=== PATIENT | female | born 1930 | race Caucasian/White ===

== ENCOUNTER 2016-09-10 14:40 | Emergency (ER) | payer MEDICARE, OTHER ==
[2016-09-10 15:28] VITALS: BP 161/88
--- NOTE | 2016-09-10 15:49 | EDM.PDOC ---
ED HPI GENERAL MEDICAL PROBLEM - General Chief Complaint: Lower Extremity Injury/Pain Stated Complaint: TRAUMA VIA [place], LT HIP PAIN Time Seen by Provider: 09/10/16 15:20 Source of Information: Reports: Patient, EMS History Limitations: Reports: No Limitations - History of Present Illness INITIAL COMMENTS - FREE TEXT/NARRATIVE: Pt to ER via EMS after falling in her yard while walking her dog today around 1: 45pm. Unsure what happened but landed on her left hip in the grass. Denies loss of consciousness or hitting her head. Denies numbness or tingling to her foot or leg. No history of fracture. Last ate around 10am. Lives alone but does have a roommate living upstairs who will be watching her dog. Rates her pain a 4. Was given Fentanyl by EMS en route to the ER. Onset: Today Onset Date: 09/10/16 Onset Time: 13:30 Location: Reports: Lower Extremity, Left Quality: Reports: Ache Severity: Moderate (4) Improves with: Reports: Rest Worsens with: Reports: Movement Context: Reports: Trauma (fell in her yard) Associated Symptoms: Reports: No Other Symptoms Treatments ORDER MAKE UP CLERK: Reports: Other (see below) - Related Data Allergies Allergy/AdvReac Type Severity Reaction Status Date / Time No Known Allergies Allergy Verified 09/14/15 16:51 Home Meds: Home Meds Ascorbic Acid [Vitamin C] 1,000 mg PO DAILY 03/20/13 [History] Aspirin [Halfprin] 162 mg PO DAILY 03/20/13 [History] Calcium Carbonate [Calcium] 600 mg PO DAILY 03/20/13 [History] Cholecalciferol (Vitamin D3) [Vitamin D] 1,000 unit PO DAILY 03/20/13 [History] Cyanocobalamin (Vitamin B-12) [Vitamin B-12] 1,000 mcg PO DAILY 03/20/13 [ History] Fish Oil/[place]-3 Fatty Acids [Fish Oil] 1,000 mg PO DAILY 03/20/13 [History] Multivitamin [Daily Multiple Vitamin] 1 tab PO DAILY 03/20/13 [History] Niacin 500 mg PO BID 03/20/13 [History] Raloxifene [Evista] 60 mg PO DAILY 03/20/13 [History] Vitamin E [Formula E] 400 unit PO DAILY 03/20/13 [History] atorvaSTATin [Lipitor] 20 mg PO BEDTIME 03/20/13 [History] Aspirin [Ecotrin] 81 mg PO DAILY 09/14/15 [History] Nitrofurantoin Ocean/Macrocryst [Macrobid] 100 mg PO BID 09/14/15 [History] Trimo-Matta 1 dose MISC ASDIRECTED 09/14/15 [History] Past Medical History 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: Musculoskeletal History: Reports: Fracture, Osteoporosis, Other (See Below) Other Musculoskeletal History: scoliosis - Past Surgical History HEENT Surgical History: Reports: Cataract Surgery GI Surgical History: Reports: Hernia Repair/Other Social & Family History - Tobacco Use Smoking Status *Q: Never Smoker Second Hand Smoke Exposure: No - Alcohol Use Days Per Week of Alcohol Use: 0 - Recreational Drug Use Recreational Drug Use: No Review of Systems - Review of Systems Review Of Systems: See Below Constitutional: Reports: No Symptoms Ears: Reports: No Symptoms Nose: Reports: No Symptoms Mouth/Throat: Reports: No Symptoms Respiratory: Reports: No Symptoms Cardiovascular: Reports: No Symptoms GI/Abdominal: Reports: No Symptoms Genitourinary: Reports: No Symptoms Musculoskeletal: Reports: Joint Pain (left hip ) Skin: Reports: No Symptoms Neurological: Reports: No Symptoms Trauma Exam - Physical Exam Exam: See Below Exam Limited By: No Limitations General Appearance: Reports: Alert, WD/WN, No Apparent Distress Head: Reports: Atraumatic, Normocephalic Ears: Reports: Normal External Exam, Normal Canal, Hearing Grossly Normal, Normal TMs Nose: Reports: Normal Inspection, Normal Mucousa, No Blood Throat/Mouth: Reports: Normal Inspection, Normal Lips, Normal Teeth, Normal Gums , Normal Oropharynx, Normal Voice, No Airway Compromise Neck: Reports: Non-Tender, Full Range of Motion, Normal Alignment, Normal Inspection Respiratory Exam: Reports: No Respiratory Distress, Lungs Clear, Normal Breath Sounds Cardiovascular: Reports: Normal Peripheral Pulses, Regular Rate, Rhythm, No Edema, No Gallop, No JVD, No Murmur, No Rub Extremities: Bony-Point Tenderness, Pain with Movement (left hip), Tenderness ( left hip), Unable to Bear Weight Neurologic: Reports: big machine consultant II-XII nml As Tested, No Motor/Sensory Deficits, Alert , Normal Mood/Affect, Oriented x 3 Skin: Reports: Normal Color, Warm/Dry Course - Vital Signs Last Recorded V/S: Last Vital Signs Temp 96.8 F 09/10/16 15:20 Pulse 98 09/10/16 15:20 Resp 14 09/10/16 15:20 BP 161/88 H 09/10/16 15:20 Pulse Ox 97 09/10/16 15:20 - Orders/Labs/Meds Orders: Active Orders 24 hr Category Date Time Status Hip Min 2V or 3V Lt [CR] Stat Exams 09/10/16 14:47 Taken Meds: Medications Discontinued Medications Generic Name Dose Route Start Last Admin Trade Name Nikki PRN Reason Stop Dose Admin Fentanyl 100 mcg 09/10/16 16:21 Sublimaze IVPUSH 09/10/16 16:22 ONETIME ONE Departure - Departure Time of Disposition: 16:23 Disposition: DC/Tfer to Acute Hospital 02 Condition: good Clinical Impression: Intertrochanteric fracture, hip - Discharge Information Instructions: Hip Pain Referrals: PCP,None [Primary Care Provider] - Forms: ED Department Discharge Additional Instructions: Xray reveals left intertrochanteric hip fracture. Call placed to Iveth Arias from [facility] carton stenciler. Xrays pushed for her review. Pt will require transfer to higher level facility due to need for orthopedic care. [facility] will accept the patient. She will be admitted as a direct admit to the 3rd floor pending orthopedic evaluation for surgery. Pt agrees with plan. Consent obtained. Plan discussed with her roommate via phone. Pt to remain NPO at this time. Pt with increasing pain of a 5-6. Fentanyl 100mcg IV given prior to transport after consent signed. Report called from nurse to accepting facility. Pt to be transported via [facility] in stable condition. - Problem List & Annotations (1) Intertrochanteric fracture, hip SNOMED Code(s): 107314719 Code(s): S72.143A - DISPLACED INTERTROCHANTERIC FRACTURE OF UNSP FEMUR, INIT Status: Acute Priority: Medium Current Visit: Yes - My Orders Last 24 Hours: My Active Orders 09/10/16 14:47 Hip Min 2V or 3V Lt [CR] Stat - Assessment/Plan Last 24 Hours: My Active Orders 09/10/16 14:47 Hip Min 2V or 3V Lt [CR] Stat
[2016-09-10] MEDS ORDERED: fentaNYL 100 MCG/2 ML SDV IVPUSH ONE (16:21)
--- NOTE | 2016-09-12 08:57 | CR ---
Impacted left intertrochanteric fracture.
== END 2016-09-10 16:47 ==
LOC: JP.ED 14:40
DX: S72.142A Displaced intertrochanteric fracture of left femur, initial encounter for closed fracture (principal); Z79.82 Long term (current) use of aspirin; Z79.899 Other long term (current) drug therapy; Z98.49 Cataract extraction status, unspecified eye; W19.XXXA Unspecified fall, initial encounter; Y93.01 Activity, walking, marching and hiking
CPT/HCPCS: 73502; 96374; 99284; J3010; 99285